=== PATIENT | female | born 2000 | race Two or more races ===

== ENCOUNTER 2025-06-28 10:26 | Outpatient (CLI) | payer OTHER | END 2025-06-28 10:37 | disposition home or self-care (01) | LOC: PRENATAL 10:26 | PROVIDERS: ATTEND Obstetrics & Gynecology Maternal & Fetal Medicine | DX: O44.00 Complete placenta previa NOS or without hemorrhage, unspecified trimester (principal); Z14.8 Genetic carrier of other disease; Z3A.19 19 weeks gestation of pregnancy ==

== ENCOUNTER 2025-09-26 15:22 | Outpatient (CLI) | payer OTHER | END 2025-09-26 15:27 | disposition home or self-care (01) | LOC: PRENATAL 15:22 | PROVIDERS: ATTEND Obstetrics & Gynecology Maternal & Fetal Medicine | DX: O26.873 Cervical shortening, third trimester (principal); O36.8130 Decreased fetal movements, third trimester, not applicable or unspecified; Z14.8 Genetic carrier of other disease; O99.013 Anemia complicating pregnancy, third trimester; Z3A.31 31 weeks gestation of pregnancy ==